=== PATIENT | male | born 1990 | race Caucasian/White ===

== ENCOUNTER 2016-12-25 12:27 | Emergency (ER) | payer OTHER ==
[~2016-12-25] VITALS: Ht 175.3 cm; Wt 68.7 kg
[~2016-12-25 12:27] MED LIST: CATAPRES0.1 MG PO; FOCALIN10 MG PO; IBUPROFEN600 MG PO; INVEGA6 MG PO; LEXAPRO10 MG PO; NAPROSYN500 MG PO; ULTRAM50 MG PO
[2016-12-25] MEDS ORDERED: ULTRAM50 MG PO (14:13)
[2016-12-25 14:46] VITALS: BP 141/92
== END 2016-12-25 14:49 | disposition home or self-care (01) ==
LOC: EME 12:27
PROC: 2W3EX1Z Immobilization of Right Hand using Splint (ICD-10-PCS; principal; 2016-12-25)
DX: S62.326A Displaced fracture of shaft of fifth metacarpal bone, right hand, initial encounter for closed fracture (principal); W22.8XXA Striking against or struck by other objects, initial encounter; F17.200 Nicotine dependence, unspecified, uncomplicated
CPT/HCPCS: 73110; 73130; 99281; 99283

== ENCOUNTER 2017-08-03 22:43 | Emergency (ER) | payer OTHER ==
[~2017-08-03] VITALS: Ht 172.7 cm; Wt 68.8 kg
[2017-08-04 00:13] LABS: BASOPHIL COUNT 0.1 K/uL (0-0.1); EOSINOPHIL (%) 0.2 % (0-5); HEMATOCRIT 42.8 % (38.0-50.0); IMMATURE GRANULOCYTE (%) 0.5 % (0.0-0.7); IMMATURE GRANULOCYTE COUNT 0.1 K/uL; INSTRUMENT ABS NEUTROPHIL CT 10.4 K/uL; MCH 32.1 PG (29.0-34.0); MCHC 36.2 G/DL (30.0-36.0); MCV 88.6 FL (86-99); MONOCYTE COUNT 0.8 K/uL (0-0.8); NEUTROPHIL COUNT 10.4 K/uL (1.8-6.4); PLATELET COUNT 179 K/uL (156-360); RBC DIS.WIDTH-CV 11.8 % (11.8-14.6); RBC DIS.WIDTH-SD 38.1 % (39-53); RED BLOOD COUNT 4.83 M/uL (4.00-5.50); WHITE BLOOD COUNT 13.3 K/uL (4.1-10.2)
[2017-08-04 00:27] LABS: CHLORIDE 104 mEq/L (99-109); POTASSIUM 3.4 mEq/L (3.7-5.4); SODIUM 140 mEq/L (136-147)
[2017-08-04 00:29] LABS: GLUCOSE 95 mg/dL (70-99)
[2017-08-04 00:30] LABS: ANION GAP 9 MEQ/L (2-14)
[2017-08-04 00:32] LABS: GFR ESTIMATE (CALCULATED) > 59 mL/min/ (58.99-99999)
[2017-08-04 00:33] LABS: UREA NITROGEN (BUN) 9 mg/dL (9-23)
[2017-08-04 01:13] LABS: ADD MIUA? NO; BILIRUBIN NEGATIVE; BLOOD NEGATIVE; COLOR YELLOW ((YELLOW)); GLUCOSE (STRIP) NEGATIVE; KETONES NEGATIVE; LEUKOCYTES NEGATIVE; NITRITE NEGATIVE; PROTEIN (STRIP) NEGATIVE; SPECIFIC GRAVITY 1.008 (1.000-1.030); UCUL ADDED? NO; UROBILINOGEN 0.2 MG/DL (0.2-1.0)
[2017-08-04] MEDS ORDERED: LIDOCAINE700 MG TP (01:26)
[2017-08-04] MEDS ORDERED: NORCO 5/3251 TABLET PO (01:27)
[2017-08-04 01:53] VITALS: BP 127/75
== END 2017-08-04 01:54 | disposition home or self-care (01) ==
LOC: EME 22:43
PROVIDERS: Emergency Medicine
DX: S00.03XA Contusion of scalp, initial encounter (principal); S00.432A Contusion of left ear, initial encounter; R10.12 Left upper quadrant pain; Y04.0XXA Assault by unarmed brawl or fight, initial encounter; F90.9 Attention-deficit hyperactivity disorder, unspecified type; F20.9 Schizophrenia, unspecified; F17.200 Nicotine dependence, unspecified, uncomplicated; Z88.5 Allergy status to narcotic agent
CPT/HCPCS: 70450; 71020; 74177; 80048; 81003; 85025; 99281; 99285; J3010; J7030

== ENCOUNTER 2017-12-26 14:33 | Emergency (ER) | payer OTHER ==
[~2017-12-26] VITALS: Ht 172.7 cm; Wt 76.7 kg
[~2017-12-26 14:33] MED LIST changes: +LIDOCAINE700 MG TP; +NORCO 5/3251 TABLET PO
[2017-12-26 16:48] VITALS: BP 114/61
== END 2017-12-26 16:48 | disposition home or self-care (01) ==
LOC: EME 14:33
DX: S66.912A Strain of unspecified muscle, fascia and tendon at wrist and hand level, left hand, initial encounter (principal); S20.212A Contusion of left front wall of thorax, initial encounter; S80.02XA Contusion of left knee, initial encounter; S60.212A Contusion of left wrist, initial encounter; V17.4XXA Pedal cycle driver injured in collision with fixed or stationary object in traffic accident, initial encounter; Y93.55 Activity, bike riding; Y92.410 Unspecified street and highway as the place of occurrence of the external cause; F90.9 Attention-deficit hyperactivity disorder, unspecified type; Z88.5 Allergy status to narcotic agent; F17.200 Nicotine dependence, unspecified, uncomplicated
CPT/HCPCS: 73130; 99281; 99284

== ENCOUNTER 2018-01-23 20:42 | Emergency (ER) | payer OTHER ==
[~2018-01-23] VITALS: Ht 172.7 cm; Wt 79.6 kg
[2018-01-23] MEDS ORDERED: MOTRIN600 MG PO (22:00)
[2018-01-23 22:40] VITALS: BP 122/74
== END 2018-01-23 22:41 | disposition home or self-care (01) ==
LOC: EME 20:42
DX: S00.93XA Contusion of unspecified part of head, initial encounter (principal); V49.9XXA Car occupant (driver) (passenger) injured in unspecified traffic accident, initial encounter; Y92.410 Unspecified street and highway as the place of occurrence of the external cause; F17.200 Nicotine dependence, unspecified, uncomplicated; Z88.5 Allergy status to narcotic agent
CPT/HCPCS: 70450; 99281; 99284